=== PATIENT | male | born 1950 | race Hispanic/Latino ===

== ENCOUNTER 2018-06-25 11:25 | Emergency (ER) | payer MEDICARE ==
[2018-06-25 11:33] VITALS: BP 155/91; PULSE 78; RESP 16; TEMP 97; O2SAT 100; BMI 22.3
--- NOTE | 2018-06-25 12:31 | ED PDOC ---
Upper Extremity Pain/Injury Time Seen by Provider: 06/25/18 11:42 Chief Complaint (Nursing): Finger,Hand,&Wrist History Per: Patient Additional Complaint(s): Pt. states earlier today he tripped and fell injuring his L 4th and L 5th digits. Seen in [facility] and was advised to come into ED as he had fractures to both fingers. Denies numbness, tingling. Past Medical History Reviewed: Historical Data, Nursing Documentation, Vital Signs Vital Signs: Last Vital Signs Temp 97 F L 06/25/18 11:32 Pulse 78 06/25/18 11:32 Resp 16 06/25/18 11:32 BP 155/91 H 06/25/18 11:32 Pulse Ox 100 06/25/18 11:32 - Family History Family History: States: No Known Family Hx Review of Systems ROS Statement: Except As Marked, All Systems Reviewed And Found Negative Physical Exam - Physical Exam Appears: Positive for: Well, Non-toxic, No Acute Distress Skin: Positive for: Normal Color, Warm. Negative for: Rash Eye Exam: Positive for: Normal appearance Pulses-Radial (L): 2+ Pulses-Radial (R): 2+ Extremity: Positive for: Other (Mild tenderness and swelling on L 4th and L 5th MCP without deformity or break in skin integrity; DIP of L 5th digit - pt. unable to actively extend; cap refill < 2 seconds of L 4th and L 5th digits) Neurologic/Psych: Positive for: Alert, Oriented (x3) - ECG O2 Sat by Pulse Oximetry: 100 - Progress ED Course And Treament: Pt. brought x-rays from urgent care which show mildly displaced fx at both 5th and 4th digits on L hand. Case d/w Dr. Herrera, hand surgery, blocking machine operator second who agrees with plan and care. Pt. informed of plan and importance of following up with Dr. Herrera. Verbalized correct understanding of necessary f/u. Also requests that his brother be informed. Plan and care d/w Gage (pt's brother) who also agrees with plan and care. Advised to take Tylenol or Motrin PRN pain. Procedures - Time-Out Type of Procedure: Splint placement Site of Procedure: L 4th/5th digits, hand, wrist Correct Patient: Yes Correct Procedure: Yes Correct Site Marked: Yes X-Ray Marked: Yes PA/Tech: Kisha ANDERSON - Splinting Location: L 4th/5th/hand/wrist Hand-Made Type: orthoglass Splint: ulnar gutter Pre-Proc Neuro Vasc Exam: normal Post-Proc Neuro Vasc Exam: normal Progress: L 4th and 5th digits held in complete extension. Disposition - Clinical Impression Clinical Impression: Finger fracture, Rupture of tendon of finger - Patient ED Disposition Is Patient to be Admitted: No - Disposition Referrals: [facility] [Outside] Fred Herrera MD [Staff Provider] - Disposition: Routine/Home Disposition Time: 14:09 Condition: STABLE Additional Instructions: FOLLOW UP WITH DR. HERRERA (HAND SURGEON) FOR FURTHER EVALUATION WITHOUT FAIL GOYO RODRIGUEZ, thank you for letting us take care of you today. Your provider was Brayden Keith MD and you were treated for HAND INJURY. The emergency medical care you received today was directed at your acute symptoms. If you were prescribed any medication, please fill it and take as directed. It may take several days for your symptoms to resolve. Return to the Emergency Department if your symptoms worsen, do not improve, or if you have any other problems. Please contact your doctor or call one of the physicians/clinics you have been referred to that are listed on the Patient Visit Information form that is included in your discharge packet. Bring any paperwork you were given at discharge with you along with any medications you are taking to your follow up visit. Our treatment cannot replace ongoing medical care by a primary care provider outside of the emergency department. Thank you for allowing the [facility] team to be part of your care today. If you had an X-Ray or CT scan: A Radiologist will review the ED reading if any change in treatment is needed we will contact you. If you had a blood, urine, or wound culture: It will take several days for the results, if any change in treatment is needed we will contact you. If you had an STI test: It will take 48 hours for the results. Please call after 1 week if you have not heard back. Instructions: Finger Fracture (DC) Forms: [facility] (Wallisian) Print Language: BURUNDIAN
== END 2018-06-25 14:19 | disposition home or self-care (01) ==
LOC: H.ER 11:25
DX: S62.635A Displaced fracture of distal phalanx of left ring finger, initial encounter for closed fracture (principal); W19.XXXA Unspecified fall, initial encounter; Y92.89 Other specified places as the place of occurrence of the external cause